=== PATIENT | female | born 1995 | race Caucasian/White ===

== ENCOUNTER 2023-10-06 13:36 | Emergency (ER) | payer OTHER ==
[2023-10-06 13:39] VITALS: BP 113/58; PULSE 91; RESP 18; TEMP 98.4; BMI 26.4
[2023-10-06] MEDS: ACETAMINOPHEN 500 MG TABLET (FP) PO ONE (14:03)
[2023-10-06] MEDS: ONDANSETRON 4 MG TABLET PO ONE (14:03)
[2023-10-06] MEDS ORDERED: ACETAMINOPHEN INJECTION 100 ML IVPB ONE (14:04)
[2023-10-06] MEDS ORDERED: FAMOTIDINE 20 MG TABLET ONE (14:04)
[2023-10-06] MEDS ORDERED: MAG HYDROX/AL HYDROX/SIMETH 30 ML UNIT-DOSE CUP ONE (14:04)
[2023-10-06] MEDS ORDERED: ONDANSETRON 4 MG/2 ML VIAL ONE (14:05)
[2023-10-06] MEDS: MAG HYDROX/AL HYDROX/SIMETH -MYLANTA- ORAL SUSPENSION PO ONE (14:18)
[2023-10-06] MEDS: SODIUM CHLORIDE 0.9% 500 ML INFUS.BAG IV ONE (14:19)
[2023-10-06] MEDS: ACETAMINOPHEN 1000 MG/100 ML BAG IVPB ONE (14:19)
[2023-10-06] MEDS: FAMOTIDINE 20 MG TABLET PO ONE (14:19)
[2023-10-06] MEDS: ONDANSETRON 4 MG/2 ML VIAL IVPUSH ONE (14:20)
[2023-10-06 14:23] LABS: BASO % 0.3 % (0-2.0); EOS % 0.7 % (0-4.5); HEMATOCRIT 36.6 % (32.4-45.2); HEMOGLOBIN 12.6 GM/dL (10.7-15.3); LYMPH % 14.3 % (8-40); MCH 32.7 pg (25.7-33.7); MCHC 34.5 g/dl (32.0-36.0); MEAN CELL VOLUME 94.7 fl (80-96); MONO % 5.6 % (3.8-10.2); NEUT % 79.1 % (42.8-82.8); PLATELET COUNT 151 10^3/uL (134-434); RBC 3.87 M/mm3 (3.60-5.2); RDW 13.3 % (11.6-15.6); WHITE BLOOD COUNT 6.9 K/mm3 (4.0-10.0)
[2023-10-06 14:41] LABS: THROAT:GRP A STREP NOT DETECTED (NOTDETECTED)
[2023-10-06 15:21] LABS: POTASSIUM 3.5 mmol/L (3.5-5.1)
[2023-10-06 15:23] LABS: ALBUMIN 3.8 g/dl (3.4-5.0); BLOOD UREA NITROGEN 5.2 mg/dL (7-18); CALCIUM 8.7 mg/dL (8.5-10.1)
[2023-10-06 15:27] LABS: CREATININE 0.6 mg/dL (0.55-1.3)
[2023-10-06 15:28] LABS: BILIRUBIN,TOTAL 0.3 mg/dL (0.2-1); TOT PROT 7.3 g/dl (6.4-8.2)
[2023-10-06 15:42] LABS: PH,URINE 6.5 (5.0-8.0); URINE APPEARANCE CLEAR; URINE BILIRUBIN NEGATIVE (NEGATIVE); URINE COLOR YELLOW; URINE GLUCOSE (UA) NEGATIVE (NEGATIVE); URINE KETONE 1+ (NEGATIVE); URINE LEUK ESTERASE NEGATIVE (NEGATIVE); URINE NITRITE NEGATIVE (NEGATIVE); URINE PROTEIN NEGATIVE (NEGATIVE); URINE UROBILINOGEN 0.2 mg/dL (0.2-1.0)
[2023-10-06 15:45] LABS: HCG,QUALITATIVE URINE Negative
== END 2023-10-06 16:24 | disposition home or self-care (01) ==
LOC: JER 13:36
PROC: 3E030NZ Introduction of Analgesics, Hypnotics, Sedatives into Peripheral Vein, Open Approach (ICD-10-PCS; principal; 2023-10-06)
PROC: 3E030GC Introduction of Other Therapeutic Substance into Peripheral Vein, Open Approach (ICD-10-PCS; 2023-10-06)
DX: A08.4 Viral intestinal infection, unspecified (principal); R10.13 Epigastric pain; R11.10 Vomiting, unspecified; Z20.822 Contact with and (suspected) exposure to COVID-19
CPT/HCPCS: 0241U-QW; 36415; 80053; 81003; 83690; 84703; 85025; 87086; 87651; 99284-25; J0131

== ENCOUNTER 2024-02-08 19:22 | Emergency (ER) | payer OTHER ==
[2024-02-08 19:27] VITALS: BP 120/75; PULSE 71; RESP 18; TEMP 98.2; BMI 25.0
[2024-02-08] MEDS ORDERED: ONDANSETRON 4 MG/2 ML VIAL ONE (20:04)
[2024-02-08] MEDS: SODIUM CHLORIDE 0.9% 500 ML INFUS.BAG IV ONE (20:11)
[2024-02-08] MEDS: ONDANSETRON 4 MG/2 ML VIAL IVPUSH ONE (20:11)
[2024-02-08 20:15] LABS: BASO % 0.9 % (0-2.0); EOS % 6.8 % (0-4.5); HEMATOCRIT 33.5 % (32.4-45.2); HEMOGLOBIN 11.3 GM/dL (10.7-15.3); LYMPH % 43.7 % (8-40); MCHC 33.6 g/dl (32.0-36.0); MEAN CELL VOLUME 95.2 fl (80-96); MONO % 6.4 % (3.8-10.2); NEUT % 42.2 % (42.8-82.8); PLATELET COUNT 172 10^3/uL (134-434); RBC 3.52 M/mm3 (3.60-5.2); RDW 13.1 % (11.6-15.6)
[2024-02-08 20:18] LABS: EPI CELLS 23 /uL (0-25.1); HYALINE CASTS 0 /uL (0-3.1); URINE APPEARANCE CLEAR; URINE BACTERIA 219 /uL (0-1359); URINE BILIRUBIN NEGATIVE (NEGATIVE); URINE COLOR YELLOW; URINE GLUCOSE (UA) NEGATIVE (NEGATIVE); URINE KETONE NEGATIVE (NEGATIVE); URINE LEUK ESTERASE NEGATIVE (NEGATIVE); URINE NITRITE NEGATIVE (NEGATIVE); URINE PROTEIN NEGATIVE (NEGATIVE); URINE RBC 4 /uL (0-23.9); URINE UROBILINOGEN 0.2 mg/dL (0.2-1.0); URINE WBC 8 /uL (0-25.8)
[2024-02-08 20:35] LABS: POTASSIUM 3.8 mmol/L (3.5-5.1)
[2024-02-08 20:37] LABS: ALBUMIN 4.4 g/dl (3.4-5.0); CALCIUM 8.8 mg/dL (8.5-10.1)
[2024-02-08 20:38] LABS: BLOOD UREA NITROGEN 12.1 mg/dL (7-18)
[2024-02-08 20:41] LABS: CREATININE 0.6 mg/dL (0.55-1.3)
[2024-02-08 20:42] LABS: BILIRUBIN,TOTAL 0.3 mg/dL (0.2-1); TOT PROT 7.5 g/dl (6.4-8.2)
[2024-02-08 21:32] LABS: HIV INTERPRETATION NEGATIVE (NEGATIVE)
== END 2024-02-09 00:17 | disposition home or self-care (01) ==
LOC: JER 19:22
PROC: 3E033GC Introduction of Other Therapeutic Substance into Peripheral Vein, Percutaneous Approach (ICD-10-PCS; principal; 2024-02-08)
DX: O03.9 Complete or unspecified spontaneous abortion without complication (principal)
CPT/HCPCS: 36415; 76817-TC; 80053; 81003; 84702; 85025; 86803; 86850; 86900; 86901; 87086; 87389; 99284-25